=== PATIENT | female | born 1945 | race Caucasian/White ===

== ENCOUNTER 2022-05-29 09:26 | Day surgery (SDC) | payer MEDICARE, OTHER ==
[~2022-05-29] VITALS: Ht 167.6 cm; Wt 75.2 kg
[~2022-05-29 09:26] MED LIST: Crutch1 EACH MISC; FOLIC ACID; MULTIVITAMIN; Norco 5-325 Ta1 EACH PO; RABE20 PO; ROSU5 PO; THYROID; [UNRECOGNIZED DRUG - OTHER]
[2022-05-29] MEDS ORDERED: AMLO10 (10:32)
[2022-05-29] MEDS ORDERED: ATOR20 (10:33)
[2022-05-29] MEDS ORDERED: LATA.005SO (10:34)
[2022-05-29] MEDS ORDERED: [UNRECOGNIZED DRUG - OTHER] (10:34)
[2022-05-29] MEDS ORDERED: TIMOL (10:34)
== END 2022-05-29 11:59 | disposition home or self-care (01) ==
LOC: ORSCSDS 09:26
PROVIDERS: Surgery
PROC: 0DJD8ZZ Inspection of Lower Intestinal Tract, Via Natural or Artificial Opening Endoscopic (ICD-10-PCS; principal; 2022-05-29 10:45)
DX: Z12.11 Encounter for screening for malignant neoplasm of colon (principal); E78.5 Hyperlipidemia, unspecified; E03.9 Hypothyroidism, unspecified; K21.9 Gastro-esophageal reflux disease without esophagitis; G47.33 Obstructive sleep apnea (adult) (pediatric); I10 Essential (primary) hypertension; Z79.899 Other long term (current) drug therapy
CPT/HCPCS: J2405; J2704; J7120